=== PATIENT | female | born 1930 | race Caucasian/White ===

== ENCOUNTER 2018-06-10 16:20 | Emergency (ER) | payer MEDICARE ==
[~2018-06-10] VITALS: Ht 162.6 cm; Wt 54.4 kg
[~2018-06-10 16:20] MED LIST: ACETAMINOPHEN650 MG RC; ATIVAN0.5 MG PO; CLARITIN10 MG PO; COREG3.125 MG PO; COUMADIN1 MG PO; COUMADIN2 MG PO; DULCOLAX SUPP10 MG RC; HEMORRHOIDAL OI57 GM TOP; HYDRALAZINE HCL10 MG PO; IPRAT-ALBUT 0.5-3 ML NEB; MELATONIN3 MG PO; MIRTAZAPINE15 MG PO; MORPHINE PO; MULTIVITAMINS1 EAC6 PO; PROMETHAZINE HC25 M1 PO; SENNA S TABLET1 EACH PO; TUSSIN DM LIQU118 ML PO; ULTRAM 50MG50 MG PO
[2018-06-10] MEDS ORDERED: NIFEDIPINE 10 MG CAP PO NR (17:45)
--- NOTE | 2018-06-10 18:44 | Diagnostic Imaging Report ---
EXAM: SHOULDER LEFT COMPLETE DATE: 06/10/2018 5:16 PM INDICATION: \S\R/O DISLOCATION \S\[id number] \S\1820 \S\Y COMPARISON: None FINDINGS: The humeral head is inferomedial to the glenoid consistent with anterior shoulder dislocation. No definite fracture identified. Visualized lung clear. Chest wall pacemaker partially visualized. IMPRESSION: Anterior shoulder dislocation. Signed by: Dr. Shaq Camp MD on 06/10/2018 6:41 PM
[2018-06-10] MEDS ORDERED: MORPHINE SULFATE 2 MG/ML SYR IV NR (18:56)
[2018-06-10] MEDS ORDERED: ONDANSETRON HCL INJ 2 MG/ML VIAL IV NR (19:00)
== END 2018-06-10 20:27 ==
LOC: ER 16:20
DX: S43.015A Anterior dislocation of left humerus, initial encounter (principal); W18.39XA Other fall on same level, initial encounter; Y92.128 Other place in nursing home as the place of occurrence of the external cause; I10 Essential (primary) hypertension; F03.90 Unspecified dementia, unspecified severity, without behavioral disturbance, psychotic disturbance, mood disturbance, and anxiety; E03.9 Hypothyroidism, unspecified
CPT/HCPCS: 73030; 99283; J2270; J2405